=== PATIENT | female | born 1960 | race Caucasian/White ===

== ENCOUNTER 2021-07-15 11:41 | Emergency (ER) | payer OTHER, MEDICAID, SELFPAY ==
[~2021-07-15] VITALS: Ht 170.2 cm; Wt 81.6 kg
[2021-07-15 11:41] VITALS: BP_SYST 135
[2021-07-15] MEDS ORDERED: NACL 0.9% 1,000 ML IV ONE (12:00)
[2021-07-15] MEDS ORDERED: DULO60CA41 PO (12:08)
[2021-07-15] MEDS ORDERED: OMEP40CA20 PO (12:08)
[2021-07-15] MEDS ORDERED: CLON0.5T4 PO ×2 (12:08)
[2021-07-15] MEDS ORDERED: CLOZ100T32 PO (12:08)
[2021-07-15] MEDS ORDERED: INSU100I26 SQ (12:08)
[2021-07-15] MEDS ORDERED: INSU100V7 SUBCUT (12:08)
[2021-07-15] MEDS ORDERED: SACC250C3 PO (12:08)
[2021-07-15] MEDS ORDERED: OXYB5TAB16 PO (12:08)
[2021-07-15] MEDS ORDERED: RISP2TAB5 PO (12:08)
[2021-07-15] MEDS ORDERED: FOLI-43 PO (12:08)
[2021-07-15] MEDS ORDERED: ZOLP12.555 PO (12:08)
[2021-07-15] MEDS ORDERED: METF1000 PO (12:08)
[2021-07-15] MEDS ORDERED: LOSA50TA3 PO (12:08)
[2021-07-15] MEDS ORDERED: NOR10 PO (12:08)
[2021-07-15 12:29] LABS: BASOPHILS # (AUTO) 0.1 K/uL (0.0-0.2); BASOPHILS % (AUTO) 0.5 % (0.0-2.0); EOSINOPHILS # (AUTO) 0.1 K/uL (0.0-0.4); EOSINOPHILS % (AUTO) 0.9 % (0.0-4.0); HEMATOCRIT 32.2 % (36-48); HEMOGLOBIN 10.9 g/dL (12.0-16.0); LYMPHOCYTES # (AUTO) 1.1 K/uL (1.0-5.5); MEAN CORPUSCULAR HEMOGLOBIN 33 pg (27-31); MEAN CORPUSCULAR HGB CONC 34 % (32-36); MEAN CORPUSCULAR VOLUME 96 fL (79.0-98.0); MONOCYTES # (AUTO) 0.8 K/uL (0.0-1.0); MONOCYTES % (AUTO) 5.8 % (1.7-9.3); NEUTROPHILS # (AUTO) 11.8 K/uL (1.8-7.7); NEUTROPHILS % (AUTO) 84.8 % (40.0-70.0); PLATELET COUNT (AUTO) 338 K/uL (130-430); RED BLOOD CELL COUNT(AUTO) 3.36 MIL/uL (4.2-6.2); RED CELL DISTRIBUTION WIDTH 13.3 % (9.0-15.0); WHITE BLOOD COUNT (AUTO) 13.9 K/uL (4.8-10.8)
[2021-07-15 12:41] LABS: ANION GAP 11 (5-15); CALCIUM 9.1 mg/dL (8.4-11.0); CHLORIDE 102 mmol/L (98-107); CREATININE 1.07 mg/dL (0.55-1.30); GLUCOSE 228 mg/dL (70-99); POTASSIUM 4.4 mmol/L (3.5-5.1); SODIUM SERUM 138 mmol/L (136-145); UREA NITROGEN, BLOOD 21 mg/dL (8-21)
[2021-07-15 12:47] LABS: ALANINE AMINOTRANSFERASE 30 U/L (12-78); ALBUMIN 3.1 g/dL (3.4-4.8); ASPARTATE AMINOTRANSFERASE 17 U/L (10-37); INR 0.9 (0.8-1.2); TOTAL BILIRUBIN 0.3 mg/dL (0.0-1.0)
[2021-07-15 12:54] LABS: GFR AFRICAN AMERICAN 67 mL/min (>90)
[2021-07-15 13:20] LABS: ACETONE, SERUM NEGATIVE (NEGATIVE)
[2021-07-15 14:09] LABS: BILIRUBIN,URINE NEGATIVE (NEGATIVE); BLOOD, URINE NEGATIVE (NEGATIVE); CLARITY/URINE CLEAR (CLEAR); COLOR,URINE YELLOW (YELLOW); GLUCOSE,URINE NEGATIVE (NEGATIVE); KETONES,URINE NEGATIVE (NEGATIVE); LEUKOCYTE ESTERASE ,URINE NEGATIVE (NEGATIVE); NITRITE, URINE NEGATIVE (NEGATIVE); PROTEIN URINE NEGATIVE (NEGATIVE); UROBILINOGEN,URINE 0.2 (0.2-1.0)
[2021-07-15 16:51] VITALS: BP_SYST 126
== END 2021-07-15 16:51 ==
LOC: SED 11:41
DX: R53.1 Weakness (principal); F32.9 Major depressive disorder, single episode, unspecified; Z88.8 Allergy status to other drugs, medicaments and biological substances
CPT/HCPCS: 36415; 71045; 80053; 81003; 82009; 82550; 83605; 84484; 85025; 85610; 85730; 93005; 96360; 99285; J7030